=== PATIENT | female | born 1950 | race Caucasian/White ===

== ENCOUNTER 2016-11-14 09:11 | Emergency (ER) | payer OTHER, MEDICAID ==
[~2016-11-14] VITALS: Ht 152.4 cm; Wt 83.9 kg
[2016-11-14] MEDS ORDERED: BENAZEPRIL10 MG PO (09:20)
[2016-11-14] MEDS ORDERED: GOOD SENSE OMEP20 MG PO (09:20)
[2016-11-14] MEDS ORDERED: GLUCOTROL5 MG PO (09:20)
[2016-11-14] MEDS ORDERED: ASPIRIN81 M1 PO (09:20)
[2016-11-14] MEDS ORDERED: GLUCOPHAGE1000 MG PO (09:20)
[2016-11-14 09:21] VITALS: BP 152/64
--- NOTE | 2016-11-14 09:23 | NUR ---
PATIENT AMBULATED TO BED 4 AT THIS TIME.
--- NOTE | 2016-11-14 09:28 | NUR ---
PATIENT PRESENTS TO ED DUE TO C/O BLOODY NOSE SINCE YESTERDAY, HX OF BRAIN TUMOR REMOVAL 2008 [facility] . PT STATES IM DUE FOR MRI, DENIES N/V/D; SKIN IS PINK/WARM/DRY; AAOX4 WITH EVEN AND STEADY GAIT; LUNGS CLEAR BL; HR EVEN AND REGULAR; PT DENIES ANY FEVER, CP, SOB, OR COUGH AT THIS TIME; PATIENT STATES PAIN OF 0/10 AT THIS TIME; PATIENT POSITIONED FOR COMFORT; HOB ELEVATED; BEDRAILS UP X2; BED DOWN. ER MD MADE AWARE OF PT STATUS.
--- NOTE | 2016-11-14 09:33 | NUR ---
DR. BRYANT AT BEDSIDE
[2016-11-14 09:50] VITALS: BP 146/75
--- NOTE | 2016-11-14 09:50 | NUR ---
Patient discharged with v/s stable. Written and verbal after care instructions given and explained. Patient verbalized understanding. Ambulatory with steady gait. All questions addressed prior to discharge. Advised to follow up with PMD. ENCOURAGED TO EAT NUTRITIOUS FOOD AND PT AGREED WITH IT.
== END 2016-11-14 09:50 | disposition home or self-care (01) ==
LOC: MED 09:31
DX: R04.0 Epistaxis (principal); F17.200 Nicotine dependence, unspecified, uncomplicated; Z85.841 Personal history of malignant neoplasm of brain; Z88.0 Allergy status to penicillin; Z79.82 Long term (current) use of aspirin; Z79.899 Other long term (current) drug therapy